=== PATIENT | female | born 1990 | race Caucasian/White ===

== ENCOUNTER → 2016-10-28 | Outpatient (CLI) | payer BC ==
[2016-10-28 13:14] LABS: CONTROL LINE HCG INT CTR LINE PRESENT
[2016-10-28 13:43] LABS: T UPTAKE 34 % (30-39); THYROXINE (T4) 11.1 UG/DL (4.5-12.0)
== END | disposition home or self-care (01) ==
LOC: M SMT 08:58
PROVIDERS: ATTEND Advanced Practice Midwife
DX: N91.2 Amenorrhea, unspecified (principal)

== ENCOUNTER → 2016-12-11 | Outpatient (REF) | payer BC | LOC: M LAB REF 17:11 | PROVIDERS: ATTEND Physician Assistant Medical | DX: Z11.9 Encounter for screening for infectious and parasitic diseases, unspecified (principal) ==

== ENCOUNTER → 2017-02-19 | Outpatient (CLI) | payer BC ==
[2017-02-19 11:55] LABS: BASO % 0.3 % (0.0-1.0); EOS # 0.1 K/mm3 (0.0-0.50); LARGE UNSTAINED CELL # 0.1 K/mm3 (0.0-0.4); LARGE UNSTAINED CELL % 0.8 % (0.0-4.0); LYMPH # 1.9 K/mm3 (1.5-6.5); LYMPH % 19.9 % (24.0-44.0); MEAN CORPUSCULAR HEMOGLOBIN 31.9 pg (27.0-33.0); MEAN CORPUSCULAR VOLUME 93.8 fl (80.0-96.0); MONO # 0.4 K/mm3 (0.0-0.8); MONO % 4.4 % (0.0-5.0); NEUTROPHILS # 6.6 K/mm3 (1.8-7.7); NEUTROPHILS % 73.5 % (36.0-66.0); PLATELET COUNT, AUTOMATED 244 k/mm3 (150-450); RED CELL DISTRIBUTION WIDTH 12.2 % (11.5-14.5)
[2017-02-19 12:32] LABS: HBsAg Prenatal NEGATIVE (NEGATIVE)
== END ==
LOC: M SMT 08:35
PROVIDERS: ATTEND Advanced Practice Midwife
DX: Z34.81 Encounter for supervision of other normal pregnancy, first trimester (principal); Z36 Encounter for antenatal screening of mother; Z3A.00 Weeks of gestation of pregnancy not specified

== ENCOUNTER → 2017-02-22 | Outpatient (REF) | payer BC | LOC: M LAB REF 12:43 | PROVIDERS: ATTEND Advanced Practice Midwife | DX: Z34.81 Encounter for supervision of other normal pregnancy, first trimester (principal); Z36 Encounter for antenatal screening of mother; Z3A.00 Weeks of gestation of pregnancy not specified ==

== ENCOUNTER → 2017-04-28 | Outpatient (CLI) | payer BC ==
[~2017-04-28] MED LIST: PRENTAB9 PO
--- NOTE | 2017-04-29 06:04 | REP ---
Clinical: Anatomical evaluation. Comparison: None . Findings: Examination demonstrates a single live intrauterine in transverse (head to maternal left) presentation. motion is identified by technologist. Placenta is noted anteriorly and grade zero without evidence for placenta previa or abruption. Amniotic fluid volume is normal. Cervix measures 3.3 cm in length and appears closed. No evidence for nuchal cord. Gestational age by current measurements 18 weeks 3 days with ARIAN 09/26/2017. FHR equals 150 beats per minute. BPD 4.2 cm 18 weeks 4 days HC 15.3 cm 18 weeks 2 days AC 13.1 cm 18 weeks 4 days FL 2.9 cm 18 weeks 5 days HL 2.9 cm 19 weeks 2 days HC/AC ratio 1.17 Estimated weight 249 grams ( 53rd percentile). Anatomical assessment demonstrates normal structures including cranium, choroid plexus, cavum, cerebellum/posterior fossa, facial features, lungs, diaphragm, stomach, cord insertion/three-vessel cord, kidneys/bladder, and extremities. Impression: Single live intrauterine in transverse lie. Limited evaluation of the heart/ventricle outflow tracts and spine. Remainder of the anatomical assessment is complete and normal. Signed by Patrick Everett MD 04/29/2017 05:55 A
== END ==
LOC: M SMT 10:17
PROVIDERS: ATTEND Obstetrics & Gynecology
DX: O32.2XX0 Maternal care for transverse and oblique lie, not applicable or unspecified (principal); Z36 Encounter for antenatal screening of mother; Z3A.18 18 weeks gestation of pregnancy

== ENCOUNTER → 2017-06-01 | Outpatient (CLI) | payer BC ==
--- NOTE | 2017-06-01 21:36 | REP ---
Clinical: Anatomical re-evaluation. Comparison: 04/28/2017 . Findings: Examination demonstrates a single live intrauterine in breech presentation. motion is identified by technologist. Placenta is noted anteriorly and grade one without evidence for placenta previa or abruption. Amniotic fluid volume is normal. Cervix measures 3.6 cm in length and appears closed. No evidence for nuchal cord. Gestational age by first US 23 weeks 2 days with ARIAN 09/26/2017 . Gestational age by current measurements 22 weeks 6 days with ARIAN 09/29/2017 . FHR equals 147 beats per minute. Estimated weight 589 grams ( 47th percentile). Anatomical assessment demonstrates normal structures including cranium, choroid plexus, cavum, cerebellum/posterior fossa, facial features, lungs, four-chamber heart/ventricular outflow tracts, diaphragm, stomach, cord insertion/three-vessel cord, kidneys/bladder, spine, and extremities. Impression: Single live intrauterine in breech presentation demonstrating appropriate interval growth. Anatomical assessment is complete and normal. Signed by Patrick Everett MD 06/01/2017 09:28 P
== END ==
LOC: M SMT 12:52
PROVIDERS: ATTEND Obstetrics & Gynecology
DX: O32.1XX0 Maternal care for breech presentation, not applicable or unspecified (principal); Z36 Encounter for antenatal screening of mother; Z3A.23 23 weeks gestation of pregnancy

== ENCOUNTER → 2017-07-08 | Outpatient (CLI) | payer BC ==
[2017-07-08 14:05] LABS: MEAN CORPUSCULAR HEMOGLOBIN 29.1 pg (27.0-33.0); MEAN CORPUSCULAR HGB CONC 32.9 g/dl (32.0-36.5); MEAN CORPUSCULAR VOLUME 88.4 fl (80.0-96.0); RED CELL DISTRIBUTION WIDTH 13.9 % (11.5-14.5); WHITE BLOOD COUNT 14.6 10^3/uL (4.0-10.0)
== END ==
LOC: M SMT 10:53
PROVIDERS: ATTEND Obstetrics & Gynecology
DX: Z34.82 Encounter for supervision of other normal pregnancy, second trimester (principal); Z3A.00 Weeks of gestation of pregnancy not specified

== ENCOUNTER 2017-07-22 09:49 | Outpatient (CLI) | payer OTHER, BC ==
[~2017-07-22] VITALS: Ht 157.5 cm; Wt 83.7 kg
[2017-07-22 10:04] VITALS: BP 121/64
[2017-07-22] MEDS ORDERED: PRENTAB9 PO (10:06)
[2017-07-22 10:12] VITALS: BP 121/64
[2017-07-22 11:09] LABS: MEAN CORPUSCULAR HEMOGLOBIN 29.4 pg (27.0-33.0); MEAN CORPUSCULAR HGB CONC 33.4 g/dl (32.0-36.5); MEAN CORPUSCULAR VOLUME 87.9 fl (80.0-96.0); RED CELL DISTRIBUTION WIDTH 14.3 % (11.5-14.5); WHITE BLOOD COUNT 13.7 10^3/uL (4.0-10.0)
[2017-07-22 11:26] LABS: INR 0.87
--- NOTE | 2017-07-22 12:37 | REP ---
OB ULTRASOUND, BIOPHYSICAL PROFILE: Real-time sonographic evaluation of the gravid uterus is performed utilizing transabdominal and endovaginal technique. There is a single living intrauterine gestation with an estimated gestational age of 30 weeks 4 days with EDC 09/26/2017. The cervix is closed and measures 4.5 cm in length. heart rate 134 beats per minute. Amniotic fluid within normal limits. JORGE is 14.7 within normal range of 8.9 to 23.6. Biophysical profile score is 8 out of 8. S/D ratio 2.24 in below normal range of 2.5 to 3.5 . RI 0.55 is below normal range of 0.59 to 0.75. position is breech. Placenta is anterior and grade 1 with no previa or abruption. No cervical funneling is seen. Signed by Ramos Rosado MD 07/22/2017 05:35 P
[2017-07-22 14:42] VITALS: BP 116/61
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
== END 2017-07-22 15:10 | disposition home or self-care (01) ==
LOC: M LDO 09:49
PROVIDERS: ATTEND Advanced Practice Midwife
DX: O99.89 Other specified diseases and conditions complicating pregnancy, childbirth and the puerperium (principal); Z3A.30 30 weeks gestation of pregnancy; V89.2XXA Person injured in unspecified motor-vehicle accident, traffic, initial encounter; X58.XXXA Exposure to other specified factors, initial encounter; Y93.9 Activity, unspecified; Y92.9 Unspecified place or not applicable; Y99.8 Other external cause status

== ENCOUNTER → 2017-08-31 | Outpatient (REF) | payer BC | LOC: M LAB REF 17:28 | PROVIDERS: ATTEND Advanced Practice Midwife | DX: Z34.83 Encounter for supervision of other normal pregnancy, third trimester (principal) ==

== ENCOUNTER 2017-09-24 19:08 | Inpatient (IN) | payer BC ==
[~2017-09-24] VITALS: Ht 157.5 cm; Wt 94.8 kg
[2017-09-24] VITALS (27 sets, daily range): BP systolic 119–174; BP diastolic 55–103
[2017-09-24] MEDS ORDERED: TUMS500C PO (19:18)
[2017-09-24] MEDS ORDERED: LACTATED RINGER'S 1000 ML IV STA (19:26)
[2017-09-24] MEDS ORDERED: PENICILLIN G POTASSIUM IV 5 MU in D5W MINI-BAG PLUS 100 ML IV STA (19:26)
[2017-09-24] MEDS ORDERED: LR 1,000 ML IV SCH (19:45)
--- NOTE | 2017-09-24 19:46 | HPEPDOC ---
Obstetrical History & Physical General Date of Admission Sep 24, 2017 at 19:26 Past Medical History Allergies Coded Allergies: No Known Drug Allergy (Verified Allergy, Unknown, 07/22/17) Medications Scheduled Multivitamins/ ( 27-0.8 mg) 1 Tab Tab, 1 TAB PO DAILY Miscellaneous Medications Calcium Carbonate (Tums) 500 Mg Chw, 500 MG PO Physical Examination Physical Examination GENERAL: Alert and oriented times three. BREAST: . ABDOMEN: Gravid and non-tender to touch. FETUS: Is vertex (VTX) by sterile vaginal examination (SVE), fetus is vertex ( VTX) by Vikram. HEART RATE: Regular rate and rhythm. LUNGS: Clear to auscultation (CTA). EXTREMITIES: No edema. No clonus. Deep tendon reflexes (DTRs) + . Laboratory Data 24H LABS Laboratory Tests 2 09/24/17 19:36: Serology Scanned Report Hepatitis B Testing Assessment/Plan Assessment is a -year-old (G) para (P)--- at + weeks by -week ultrasound. Presents to Labor and Delivery (L&D) . Plan Admit and orient. 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 Diet: . Group B Streptococcus (GBS) [negative]. Labs and intravenous (IV) per unit protocol. Counseled on Pitocin and induction of labor (IOL). Lactated Ringers (LR): Bolus mL, then at mL/hr. Anticipate [normal spontaneous delivery ()]. C-S as appropriate. ELBERT REESE CNM Sep 24, 2017 19:46
--- NOTE | 2017-09-24 19:57 | HPEPDOC ---
Obstetrical History & Physical General Date of Admission Sep 24, 2017 at 19:26 Primary Care Physician: ELBERT REESE CNM History of Present Illness Patient is a 26-year-old female who is a at 39.4 weeks gestation with an ARIAN of 09/27/17 based off of her 1st trimester ultrasound. She initiated her care in her first trimester at [facility]. Her has been uncomplicated. She presents to L&D with complaints of contractions. She report contractions to be every 3 minutes for the last 2 hours. She reports having bloody show and movement. Denies leaking of fluid. Chief Complaint: Contractions, term, Active Labor, Group B Positive Information Provided By: Patient Age: 26 : 3 Term: 0 Pre-term: 0 Abortions: 2 Livin Care Care: Good Care Dating Final EDC: Sep 27, 2017 Final EDC by: 1st trimester (US) LMP: Dec 12, 2017 EGA at Admission: 39.4 Antepartum Course Height (inches): 62 Pre- weight (lbs.): 170 Admission Weight (lbs.): 208 Change in Weight (lbs.): 38 Past Medical History [employer] History: Spontaneous (12/2012: SAB; 01/2016:MAB with D&C), Human papillomavirus(HPV) Past Medical History Medical History varicella as a child Surgical History: Dilatation and Curettage Family History Significant Family History: Cancer, Diverticulitis, Heart disease, Hypertension Social History Marital Status: Single Family situation: Spouse/partner home Psychosocial History: Anxiety * Smoker: non-smoker Alcohol: Denies Drugs: denies Abuse Violence Screening Have you been hit/kicked/slapp: No Have you been sexually assault: No Imunizations Tdap status: current Influenza Status: current Allergies Coded Allergies: No Known Drug Allergy (Verified Allergy, Unknown, 07/22/17) Medications Scheduled Multivitamins/ ( 27-0.8 mg) 1 Tab Tab, 1 TAB PO DAILY Miscellaneous Medications Calcium Carbonate (Tums) 500 Mg Chw, 500 MG PO Physical Examination Physical Examination GENERAL: Alert and oriented times three. BREAST: . ABDOMEN: Gravid and non-tender to touch. FETUS: Is vertex (VTX) by sterile vaginal examination (SVE), fetus is vertex ( VTX) by Vikram. HEART RATE: Regular rate and rhythm. LUNGS: Clear to auscultation (CTA). EXTREMITIES: No edema. No clonus. . Laboratory Data 24H LABS Laboratory Tests 2 09/24/17 19:36: Serology Scanned Report Hepatitis B Testing Urine Culture: No Growth Pertinent Laboratoy Data Blood Type: A+ RBC Antibody Screen: Negative HIV: Negative Hepatitis B: Negative Hepatitis C: Negative Rapid Plasma Reagin: Nonreactive Rubella: Immune Chlamydia/Gonorrhea: Negative Group B Streptococcus: Positive Quad Screen Test: Declined Glucose Tolerance Test: 96 Vaginal Examination Dilation: 4 cm Effacement: 80% Station: -2 Cervical Consistency: Soft Cervical Position: Anterior Presentation: Cephalic presentation Position: Vertex (occiput) Assessment Heart Rate (FHR): 130 Variability: Moderate Accelerations: Positive Decelerations: None Tocometer Contractions: Yes Frequency: regular Strength: palpated as moderate Multi-drug resistant Organism: No history of MDRO Assessment/Plan Assessment IUP at 39.4 weeks gestation active labor Category I HR tracing Positive GBS Plan Admit to L&D. Diet: clear. Group B Streptococcus (GBS) positive. Labs and intravenous (IV) per unit protocol. Preeclamptic profile ordered. Lactated Ringers (LR): Bolus 800 mL, then at 125 mL/hr. PCN G for GBS prophylaxis ordered. Anesthesia consult per patient's request. Anticipate normal spontaneous delivery (). ELBERT REESE CNM Sep 24, 2017 19:57
[2017-09-24 20:07] LABS: MEAN CORPUSCULAR HEMOGLOBIN 29.2 pg (27.0-33.0); MEAN CORPUSCULAR HGB CONC 34.2 g/dl (32.0-36.5); MEAN CORPUSCULAR VOLUME 85.3 fl (80.0-96.0); PLATELET COUNT, AUTOMATED 222 10^3/uL (150-450); RED CELL DISTRIBUTION WIDTH 14.6 % (11.5-14.5); WHITE BLOOD COUNT 15.6 10^3/uL (4.0-10.0)
[2017-09-24 20:27] LABS: ALT/SGPT 23 U/L (12-78); AST/SGOT 23 U/L (7-37); BILIRUBIN,TOTAL 0.3 MG/DL (0.2-1.0); CREATININE FOR GFR 0.68 MG/DL (0.55-1.02); GLOMERULAR FILTRATION RATE > 60.0 (>60); URIC ACID 6.1 MG/DL (2.6-6.0)
[2017-09-24] MEDS ORDERED: FENTANYL 2MCG/ML ROPIVACAINE 0.2% IN 0.9% NACL 200ML IVBAG As Ordered ONE (20:30)
[2017-09-24] MEDS ORDERED: diphenhydrAMINE INJ 50MG/ML VIAL (J1200) IV PRN (21:45)
[2017-09-24] MEDS ORDERED: NALOXONE INJ 0.4 MG/1 ML VIAL (J2310) IV PRN (21:45)
[2017-09-24] MEDS ORDERED: LACTATED RINGER'S 1000 ML IV PRN (21:45)
[2017-09-24] MEDS ORDERED: REFRIGERATOR IV KEYS XX PRN (21:45)
[2017-09-24] MEDS ORDERED: ONDANSETRON 4MG/2ML VIAL (J2405) IV PRN (21:45)
[2017-09-24] MEDS ORDERED: ePHEDrine SULFATE 25 MG/5 ML(5MG/ML) SYRINGE IV PRN (21:45)
[2017-09-24] MEDS ORDERED: EPIDURAL COMMENT XX SCH (21:45)
[2017-09-24] MEDS ORDERED: FENTANYL/ROPIVACAINE/NACL BAG 200 ML EPIDURAL SCH (21:45)
[2017-09-24] MEDS ORDERED: EPIDURAL/PCA KEYS XX PRN (21:45)
[2017-09-24] MEDS ORDERED: OXYTOCIN DRIP 30 UNITS in APPROPRIATE DILUENT 1 EA IV SCH (22:15)
[2017-09-25] VITALS (13 sets, daily range): BP systolic 118–142; BP diastolic 57–83
[2017-09-25] MEDS ORDERED: PENICILLIN G POTASSIUM IV 2.5 MU in APPROPRIATE DILUENT 1 EA IV SCH ×2
[2017-09-25] MEDS ORDERED: MEASLES,MUMPS,RUBELLA VACCINE INJ (MMR-II) (90707) SC SCH (05:00)
[2017-09-25] MEDS ORDERED: ANUSOL HC CREAM 30GM TOP PRN (05:00)
[2017-09-25] MEDS ORDERED: OXYTOCIN DRIP 30 UNITS in APPROPRIATE DILUENT 1 EA IV SCH (05:00)
[2017-09-25] MEDS ORDERED: DIBUCAINE 1% OINTMENT 30GM TOP PRN (05:00)
[2017-09-25] MEDS ORDERED: DOCUSATE SODIUM 100 MG CAP PO PRN (05:00)
[2017-09-25] MEDS ORDERED: RHOGAM 300 MCG (1500 IU) INJ (J2790) IM SCH (05:00)
[2017-09-25] MEDS ORDERED: ACETAMINOPHEN 500 MG TAB PO PRN (05:00)
[2017-09-25] MEDS ORDERED: METHYLERGONOVINE MALEATE 0.2 MG TAB PO PRN (05:00)
--- NOTE | 2017-09-25 05:00 | DNPDOC ---
[facility] Delivery Note Delivery Note DATE OF DELIVERY: 09/25/17 at 0409 PROCEDURE: Spontaneous vaginal delivery. PROVIDER: Elbert Pineda CNM, MARBIN ANESTHESIA: epidural. ESTIMATED BLOOD LOSS: 150 mL. FINDINGS: 7 pounds 9 ounces, 3440 grams, female , Score 8/9, nuchal cord times x1, meconium stained fluid. DELIVERY SUMMARY: Patient is a [id number] who is now a who presented to L&D in active labor. She received an epidural for pain management and 28 cc of Pitocin to augment her labor. She progressed to fully dilated at 0146 and pushed to a living female at 0409 in the ALBERT position with restitution to LOT. There was a tight nuchal noted that was not reduced. The anterior shoulder delivered with ease and the corpus immediately followed. The baby was placed on the maternal abdomen, active and crying after stimulation. The cord was clamped x2 after pulsation ceased and cut by the FOB. A 3-vessel cord was noted. The placenta delivered spontaneously and intact at 0421. Uterine hemostasis was achieved with rapid infusion of IV Pitocin and fundal massage. The perineum and vagina were inspected and found to have a 2nd degree perineal laceration that was repaired with a 3.0 vicryl rapide. Mom plans on . They are naming their "Solen." Both mom and baby are in stable condition. ELBERT PINEDA CNM Sep 25, 2017 05:00
[2017-09-25] MEDS: IBUPROFEN 800 MG TAB PO PRN ×2 (06:58→15:32)
[2017-09-25] MEDS: PRENATAL VITAMINS CHEWABLE TABLET PO SCH (09:17)
[2017-09-26 06:53] VITALS: BP 139/71
[2017-09-26] MEDS: PRENATAL VITAMINS CHEWABLE TABLET PO SCH (08:44)
[2017-09-26] MEDS ORDERED: ACET50TA PO (11:16)
[2017-09-26] MEDS ORDERED: IBUP-1114 PO (11:16)
[2017-09-26 18:00] VITALS: BP 132/67
[2017-09-26] MEDS: IBUPROFEN 800 MG TAB PO PRN (21:06)
[2017-09-27 06:00] VITALS: BP 130/70
[2017-09-27] MEDS: PRENATAL VITAMINS CHEWABLE TABLET PO SCH (07:37)
[2017-09-27] MEDS: IBUPROFEN 800 MG TAB PO PRN (07:37)
== END 2017-09-27 15:55 | disposition home or self-care (01) | DRG 560 ==
LOC: M LDO 19:08 → M LDI 19:26 → M OBS 09-25 07:31
PROVIDERS: ADMIT Advanced Practice Midwife; ATTEND Advanced Practice Midwife
PROC: 10E0XZZ Delivery of Products of Conception, External Approach (ICD-10-PCS; principal; 2017-09-25)
PROC: 0KQM0ZZ Repair Perineum Muscle, Open Approach (ICD-10-PCS; 2017-09-25)
DX: O99.824 Streptococcus B carrier state complicating childbirth (principal); O77.0 Labor and delivery complicated by meconium in amniotic fluid; Z37.0 Single live birth; Z3A.39 39 weeks gestation of pregnancy; O69.2XX0 Labor and delivery complicated by other cord entanglement, with compression, not applicable or unspecified; O70.1 Second degree perineal laceration during delivery

== ENCOUNTER → 2019-03-17 | Outpatient (CLI) | payer BC ==
[~2019-03-17] MED LIST changes: +IBUP-1114 PO; +MAPA500T2 PO; +TUMS500C PO
[2019-03-17 13:34] LABS: BASO % 0.5 % (0.0-1.0); EOS # 0.1 10^3/uL (0.0-0.50); EOS % 1.3 % (0.0-3.0); HEMATOCRIT 42.3 % (36.0-47.0); HEMOGLOBIN 14.2 g/dl (12.0-15.5); LYMPH # 2.3 10^3/uL (1.5-4.5); LYMPH % 28.6 % (24.0-44.0); MEAN CORPUSCULAR HEMOGLOBIN 31.7 pg (27.0-33.0); MEAN CORPUSCULAR HGB CONC 33.6 g/dl (32.0-36.5); MEAN CORPUSCULAR VOLUME 94.4 fl (80.0-96.0); MONO # 0.5 10^3/uL (0.0-0.8); MONO % 6.1 % (0.0-5.0); PLATELET COUNT, AUTOMATED 249 10^3/uL (150-450); RED BLOOD COUNT 4.48 10^6/uL (4.00-5.40); WHITE BLOOD COUNT 7.9 10^3/uL (4.0-10.0)
[2019-03-17 14:26] LABS: HEPATITIS C VIRUS ABY INDEX < 0.0 INDEX (<0.8); HIV 1&2 SCREEN CENTAUR NEGATIVE (NEGATIVE); RUBELLA IgG QUALITATIVE IMMUNE (IMMUNE)
[2019-03-17 15:34] LABS: CHLAMYDIA DNA AMPLIFICATION NEGATIVE (NEGATIVE); GC DNA AMPLIFICATION NEGATIVE (NEGATIVE)
== END ==
LOC: M SMT 08:54
PROVIDERS: ATTEND Advanced Practice Midwife
DX: Z34.81 Encounter for supervision of other normal pregnancy, first trimester (principal)

== ENCOUNTER → 2019-03-29 | Outpatient (REF) | payer BC | LOC: M LAB REF 17:04 | PROVIDERS: ATTEND Advanced Practice Midwife | DX: Z34.81 Encounter for supervision of other normal pregnancy, first trimester (principal); Z3A.00 Weeks of gestation of pregnancy not specified ==

== ENCOUNTER → 2019-04-13 | Outpatient (REF) | payer BC ==
[~2019-04-13] MED LIST changes: +ASPI81CH33 PO; +DOCU100C16 PO; +IBUP80TA PO; +LABE100T36 PO; +LABE200T32 PO; +PERCOCET PO
== END ==
LOC: M LAB REF 17:13
PROVIDERS: ATTEND Advanced Practice Midwife
DX: Z34.82 Encounter for supervision of other normal pregnancy, second trimester (principal)

== ENCOUNTER → 2019-05-11 | Outpatient (CLI) | payer BC ==
[~2019-05-11] MED LIST changes: -ASPI81CH33 PO; -DOCU100C16 PO; -IBUP80TA PO; -LABE100T36 PO; -LABE200T32 PO; -PERCOCET PO
[2019-05-11 18:40] LABS: ALT/SGPT 15 U/L (12-78); BILIRUBIN,TOTAL 0.2 MG/DL (0.2-1.0); CREATININE FOR GFR 0.66 MG/DL (0.55-1.30); FREE T4 0.85 NG/DL (0.76-1.46); GLOMERULAR FILTRATION RATE > 60.0 (>60); LDH LACTATE DEHYDROGENASE 152 U/L (84-246); URIC ACID 4.4 MG/DL (2.6-6.0)
[2019-05-11 18:42] LABS: TOTAL 25(OH) VITAMIN D 19.5 NG/ML (30.0-100.0)
[2019-05-11 18:57] LABS: TOTAL PROTEIN,RANDOM URINE 19.8 MG/DL (0.0-12.0)
== END ==
LOC: M SMT 14:54
PROVIDERS: ATTEND Advanced Practice Midwife
DX: O10.012 Pre-existing essential hypertension complicating pregnancy, second trimester (principal); O26.812 Pregnancy related exhaustion and fatigue, second trimester

== ENCOUNTER → 2019-05-22 | Outpatient (CLI) | payer BC ==
--- NOTE | 2019-05-22 16:06 | REP ---
Obstetric ultrasound for anatomy: There is a single intrauterine gestation in a transverse lie with the head to the maternal right. There is motion and cardiac activity. The heart rate is 134 beats per minute. The placenta is right lateral. There is no placenta previa or abruptio. The placenta is grade zero. The amniotic fluid volume subjectively is normal. The cervix measures 4.4 cm in length. During the examination there was a contraction in the lower uterine segment. Gestational age by today's ultrasound 17 weeks 1 day/ARIAN 10/29/2019. Gestational age by LMP is 18-weeks 6 days/ARIAN 10/17/2019. weight is 178 grams/0 pounds, 6 ounces. This is less than the 3rd percentile for 18 weeks 6 days. The following anatomic structures are identified and are unremarkable: Cranium, choroid plexus, upper lip, facial profile, face, lungs, four-chamber heart, cardiac right and left ventricular outflow tracts, diaphragm, stomach, cord insertion, three-vessel cord, kidneys, bladder and upper lower extremities. Suboptimally demonstrated because of position are the cavum septum pellucidum, cerebellum and spine. A followup study after 20 weeks gestational age may be considered for further evaluation of these structures. Otherwise, there are no anomalies. Electronically Signed by Ramos Kaufman MD 05/22/2019 03:57 P
== END ==
LOC: M RAD 14:11
PROVIDERS: ATTEND Advanced Practice Midwife
DX: Z36.89 Encounter for other specified antenatal screening (principal); Z3A.17 17 weeks gestation of pregnancy

== ENCOUNTER → 2019-07-14 | Outpatient (CLI) | payer BC ==
[2019-07-14 13:26] LABS: HEMATOCRIT 42.8 % (36.0-47.0); HEMOGLOBIN 13.8 g/dl (12.0-15.5); MEAN CORPUSCULAR HEMOGLOBIN 29.8 pg (27.0-33.0); MEAN CORPUSCULAR HGB CONC 32.2 g/dl (32.0-36.5); MEAN CORPUSCULAR VOLUME 92.4 fl (80.0-96.0); PLATELET COUNT, AUTOMATED 232 10^3/uL (150-450); RED BLOOD COUNT 4.63 10^6/uL (4.00-5.40); WHITE BLOOD COUNT 11.7 10^3/uL (4.0-10.0)
== END ==
LOC: M SMT 08:55
PROVIDERS: ATTEND Advanced Practice Midwife
DX: O10.012 Pre-existing essential hypertension complicating pregnancy, second trimester (principal)

== ENCOUNTER 2019-09-14 15:35 | Outpatient (CLI) | payer BC ==
[2019-09-14] VITALS (10 sets, daily range): BP systolic 121–156; BP diastolic 68–86
[~2019-09-14] VITALS: Ht 160 cm; Wt 94.0 kg
[2019-09-14] MEDS ORDERED: ASPI81CH33 PO (15:56)
[2019-09-14] MEDS ORDERED: LABE100T36 PO (15:56)
[2019-09-14 16:51] LABS: HEMATOCRIT 41.1 % (36.0-47.0); HEMOGLOBIN 13.5 g/dl (12.0-15.5); MEAN CORPUSCULAR HEMOGLOBIN 30.2 pg (27.0-33.0); MEAN CORPUSCULAR HGB CONC 32.8 g/dl (32.0-36.5); MEAN CORPUSCULAR VOLUME 91.9 fl (80.0-96.0); PLATELET COUNT, AUTOMATED 214 10^3/uL (150-450); RED BLOOD COUNT 4.47 10^6/uL (4.00-5.40); WHITE BLOOD COUNT 11.4 10^3/uL (4.0-10.0)
[2019-09-14 17:14] LABS: CREATININE,RANDOM URINE 32.4 MG/DL; TOTAL PROTEIN,RANDOM URINE 11.3 MG/DL (0.0-12.0)
[2019-09-14] MEDS ORDERED: BETAMETHASONE SOLUSPAN 6MG/ML INJ 5ML (J0702) IM ONE (17:15)
[2019-09-14 17:26] LABS: ALT/SGPT 16 U/L (12-78); BILIRUBIN,TOTAL 0.2 MG/DL (0.2-1.0); GLOMERULAR FILTRATION RATE > 60.0 (>60); LDH LACTATE DEHYDROGENASE 157 U/L (84-246); URIC ACID 5.7 MG/DL (2.6-6.0)
--- NOTE | 2019-09-14 19:06 | IPN ---
DATE: 09/14/2019 28-year-old G-4, P-1, 0-0-2-1 female, 35 and 2/7 weeks gestation by 7 week ultrasound, EDC of 10/17/2019, presents to triage from the office after having elevated blood pressure in the office, treated. The patient has a history of chronic hypertension and is on labetalol 200 mg twice a day. She denies headaches or blurry vision. She feels fine. OBSTETRIC: Blood pressure 147/83, pulse 84. She is in apparent distress. Head and neck exam: Normal. Lungs: Clear. Heart: Regular rate and rhythm. Abdomen: Nontender, gravid. heart tones: Category 1. Contractions none. Preeclampsia labs are within normal limits. Spot urine protein indeterminate. ASSESSMENT: 28-year-old, G-4, P-1, 0-0-2-1 female at 35 2/7 weeks gestation with chronic hypertension on antihypertensive. PLAN: The patient received first dose of betamethasone. She will return tomorrow for her second dose. She will be maintained on labetalol 200 mg twice a day. She will stop working and maintain modified bedrest. Will give consideration to early delivery due to blood pressure issues.
[2019-09-15] MEDS ORDERED: LABE200T32 PO (14:20)
== END 2019-09-14 18:40 | disposition home or self-care (01) ==
LOC: M LDO 15:35
PROVIDERS: ATTEND Specialist
DX: O26.893 Other specified pregnancy related conditions, third trimester (principal); R03.0 Elevated blood-pressure reading, without diagnosis of hypertension; Z3A.35 35 weeks gestation of pregnancy
CPT/HCPCS: 36415; 59025; 82247; 82565; 82570; 83615; 84156; 84450; 84460; 84550; 85027; 96372; G0378; G0463; J0702

== ENCOUNTER 2019-09-15 13:53 | Inpatient (IN) | payer BC ==
[~2019-09-15] VITALS: Ht 160 cm; Wt 93.5 kg
[2019-09-15] VITALS (13 sets, daily range): BP systolic 127–175; BP diastolic 59–96
[~2019-09-15 13:53] MED LIST changes: +ASPI81CH33 PO; +LABE100T36 PO
[2019-09-15] MEDS ORDERED: LABE200T32 PO (14:20)
[2019-09-15] MEDS ORDERED: BETAMETHASONE SOLUSPAN 6MG/ML INJ 5ML (J0702) IM ONE (14:45)
[2019-09-15] MEDS ORDERED: LR 1,000 ML IV SCH (15:40)
[2019-09-15] MEDS ORDERED: LABETALOL HCL 100 MG/20 ML VIAL IV ONE (15:45)
[2019-09-15 16:24] LABS: HEMOGLOBIN 13.2 g/dl (12.0-15.5); MEAN CORPUSCULAR HEMOGLOBIN 29.5 pg (27.0-33.0); MEAN CORPUSCULAR HGB CONC 32.2 g/dl (32.0-36.5); MEAN CORPUSCULAR VOLUME 91.5 fl (80.0-96.0); PLATELET COUNT, AUTOMATED 230 10^3/uL (150-450); RED BLOOD COUNT 4.48 10^6/uL (4.00-5.40); WHITE BLOOD COUNT 18.8 10^3/uL (4.0-10.0)
--- NOTE | 2019-09-15 16:29 | HPEPDOC ---
Obstetrical History & Physical General Date of Admission 09/15/2019 History of Present Illness 28yo ARIAN 10/17/2019. Presents @ 35w3d for 2nd betamethasone injection and followup growth sono due to essential hypertension and growth concerns. Maintained at home with labetalol 200mg BID. Blood pressures on admit elevated, 175/96. Growth sono significant for breech presentation, growth <3%, EFW 1564gm, suspicious for asymmetric IUGR. BPP 05/11 with category 1 tracing. Chief Complaint: IUP- Information Provided By: Patient Age: 28 : 4 Term: 1 Pre-term: 0 Abortions: 2 Livin Care Care: Good Care Dating Final EDC: Oct 17, 2019 Final EDC by: 1st trimester () 1st Trimester Date: March 01, 2019 Weeks + Days: 7 (+1) Estimated Date of Confinement: Oct 17, 2019 EGA at Admission: 35 (+3) Antepartum Course Height (inches): 62 Pre- weight (lbs.): 175 Admission Weight (lbs.): 207 Past Medical History Past Obstetrical History : Past Obstetrical History: Primgravida (2017) Type of Delivery: Spontaneous Vaginal Del. Sex of : Female (7#12) Complications: No OFFICE ASSISTANT History: Spontaneous , Abnormal Pap Past Medical History Medical History Essential hypertension, anxiety Surgical History: Dilatation and Curettage Family History Significant Family History: Cancer, Diverticulitis, Heart disease, Hypertension Social History Marital Status: Family situation: Spouse/partner home Psychosocial History: Anxiety * Smoker: non-smoker Alcohol: Denies Drugs: denies Abuse Violence Screening Have you been hit/kicked/slapp: No Have you been sexually assault: No Imunizations Tdap status: current Influenza Status: current Allergies Coded Allergies: No Known Drug Allergies (Verified Allergy, Unknown, 09/14/19) Medications Scheduled Aspirin (Aspirin) 81 Mg Tab.chew, 1 TAB PO DAILY for pain Labetalol HCl (Labetalol HCl) 200 Mg Tablet, 200 MG PO BID No.137/Iron/Folic Acd ( Vitamin Tablet) 1 Tab Tab, 1 TAB PO DAILY Miscellaneous Medications Calcium Carbonate (Tums) 500 Mg Chw, 500 MG PO Physical Examination Physical Examination GENERAL: Alert and oriented times three. BREAST: . ABDOMEN: Gravid and non-tender to touch. FETUS: fetus is breech by sono today. HEART RATE: Regular rate and rhythm. LUNGS: Clear to auscultation (CTA). EXTREMITIES: No edema. No clonus. Deep tendon reflexes (DTRs) + 2. Vital Signs/I&O Vital Signs Date Time Temp Pulse Resp B/P (MAP) Pulse Ox O2 Delivery O2 Flow Rate FiO2 09/15/19 15:23 75 18 172/86 (114) 09/15/19 14:18 99.0 Pertinent Laboratoy Data Blood Type: A+ RBC Antibody Screen: Positive HIV: Negative Hepatitis B: Negative Hepatitis C: Negative Rapid Plasma Reagin: Nonreactive Rubella: Immune Chlamydia/Gonorrhea: Negative Group B Streptococcus: Unknown (obtained 09/15/19) Quad Screen Test: Declined Diag/Inter Therapy Betamethasone complete 09/15/19 Anatomy Ultrasound Ultrasound Date: May 22, 2019 Placenta Location: Right Lateral Normal Anatomy: Yes Placenta Previa: No Estimated Weight (grams): 178 (<3%) Other Ultrasounds 03/01/19 dating TVUS 7w1d. ARIAN 10/17/2019 05/31/19 f/u anatomy WNL, no EFW documented 06/13/19 EFW 313gm, 31% reported based on ARIAN current measurements of 10/29/19 08/09/19 EFW 989gm, 28% reported based on ARIAN current measurements of 11/05/19 08/30/19 Breech. EFW 1431gm, 42% reported based on ARIAN current measurements of 11/11/19, JORGE 9.7 09/15/19 Breech. EFW 1564gm, <3% based on correct ARIAN of 10/17/19. JORGE 12.0. Suggestive of asymmetric IUGR. BPP 05/11 Steroid Therapy Steroid Therapy: Yes Date #1: Sep 14, 2019 Date #2: Sep 15, 2019 Reason CHTN Vaginal Examination Dilation: None (deferred) Assessment Heart Rate (FHR): 145 Variability: Moderate Accelerations: Positive Decelerations: None Tocometer Contractions: No Multi-drug resistant Organism: No history of MDRO Assessment/Plan Assessment Theresa is a 28-year-old (G)4 para (P)1-0-2-1 at 35 weeks by 7-week ultrasound. Presents to Labor and Delivery (L&D) for betamethasone #2, growth sono and BPP. EFW 1564, <3% suggestive of asymmetric IUGR. Initial blood pressures 175/96, 172/86. Reviewed patient status with Dr Moran. Recommend admit, labs, hypertensive control and prepare for primary tomorrow 24h rs after 2nd dose of betamethasone. Plan Admit and orient. 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 Diet: Regular. NPO after midnight. Group B Streptococcus (GBS) unknown, obtained 09/15/19. Labs and intravenous (IV) per unit protocol. Counseled on preparations for tomorrow. Saline lock C-S per Dr Moran. Alison Levine Sep 15, 2019 16:29
[2019-09-15 17:08] LABS: ALT/SGPT 20 U/L (12-78); BILIRUBIN,TOTAL 0.2 MG/DL (0.2-1.0); GLOMERULAR FILTRATION RATE > 60.0 (>60); LDH LACTATE DEHYDROGENASE 191 U/L (84-246); URIC ACID 6.1 MG/DL (2.6-6.0)
[2019-09-15] MEDS ORDERED: hydrOXYzine 50 MG TAB PO PRN (20:45)
[2019-09-15] MEDS: LABETALOL 200 MG TAB PO SCH (21:01)
[2019-09-16] VITALS (16 sets, daily range): BP systolic 105–160; BP diastolic 52–85
--- NOTE | 2019-09-16 05:26 | IPNPDOC ---
Text Note Date of Service The patient was seen on 09/16/19. NOTE Called to room to evaluate heart deceleration. Per nursing at approxim ately 0440, an audible FH deceleration to 60's over approximately 2.5 minutes was heard with recovery to 120's, minimal variability. Maternal pulse ox 70's. Tracing is sketchy due to activity, position and maternal habitus. Bedside sono to confirm optimal placement of transducer. FH now 135, minimal to moderate variability, audible movement. Will observe closely and update Dr Moran. IV fluid bolus started. Blood pressures have remained stable overnight. VS,Fishbone, I+O VS, Fishbone, I+O Laboratory Tests 09/15/19 15:59 Vital Signs Date Time Temp Pulse Resp B/P (MAP) Pulse Ox O2 Delivery O2 Flow Rate FiO2 09/15/19 21:01 88 140/75 09/15/19 18:34 18 09/15/19 14:18 99.0 Alison Levine CNM Sep 16, 2019 05:26
--- NOTE | 2019-09-16 07:12 | REP ---
OB ULTRASOUND: Real-time sonographic evaluation of the gravid uterus performed. There is a single living intrauterine gestation. The estimated gestational age is reportedly 35 weeks 3 days based on LMP with EDC 10/17/2019. Estimated gestational age based on the first ultrasound is 33 weeks 5 days with EDC 10/29/2019. Estimated age based on today's ultrasound is 31 weeks 0 days indicating suboptimal growth. BPD 80 mm = 32 weeks 1 day, less than 5th percentile HC 293 mm = 32 weeks 3 days, less than 5th percentile AC 259 mm = 30 weeks 0 days, less than 5th percentile FL 57 mm = 30 weeks 0 days, less than 5th percentile HC/AC ratio 1.13, is slightly above normal range of 0.93 to 1.12. Estimated weight 1564 grams, less than 3rd percentile. Cervix is closed and measures 3.6 cm in length. heart rate 135 beats per minute. Amniotic fluid within normal limits, JORGE 12.0 within normal range of 7.8 to 24.9. Biophysical profile score 8/8. S/D ratio 2.82, within normal range of 2.0 to 3.0. RI 0.65, within normal range of 0.59 to 0.75. Middle cerebral artery demonstrates peak systolic velocity 54.5 cm/s with S/D ratio 2.99 and RI 0.67. position is breech. Placenta is on the right and grade 1 to 2 with no previa or abruption. Findings are suspicious for IUGR. Electronically Signed by Ramos Rosado MD 09/18/2019 04:16 P
[2019-09-16] MEDS ORDERED: ASPIRIN 81 MG ENTERIC TAB PO SCH (09:00)
[2019-09-16] MEDS: LABETALOL 200 MG TAB PO SCH ×2 (09:09→21:00)
[2019-09-16 12:27] LABS: HEMATOCRIT 36.6 % (36.0-47.0); HEMOGLOBIN 12.1 g/dl (12.0-15.5); MEAN CORPUSCULAR HEMOGLOBIN 30.4 pg (27.0-33.0); MEAN CORPUSCULAR HGB CONC 33.1 g/dl (32.0-36.5); PLATELET COUNT, AUTOMATED 211 10^3/uL (150-450); RED BLOOD COUNT 3.98 10^6/uL (4.00-5.40); WHITE BLOOD COUNT 14.8 10^3/uL (4.0-10.0)
[2019-09-16] MEDS ORDERED: ceFAZolin 2 GM/D5W 50 ML IV BAG (J0690 PER 500MG) As Ordered ONE (12:52)
[2019-09-16] MEDS ORDERED: BICITRA 30ML SOLN UDC As Ordered ONE (12:52)
[2019-09-16] MEDS ORDERED: AZITHROMYCIN INJ 500MG VIAL (J0456) As Ordered ONE (12:55)
[2019-09-16] MEDS ORDERED: AZITHROMYCIN INJ 500 MG, VIAL MATE ADAPTER 1 EACH in D5W 250 ML IV ONE (13:00)
[2019-09-16] MEDS ORDERED: ceFAZolin SOD 2 GM in IV 1 EA IV ONE (13:00)
[2019-09-16] MEDS ORDERED: BICITRA 30ML SOLN UDC PO ONE (13:00)
[2019-09-16] MEDS ORDERED: METOCLOPRAMIDE INJ 10MG/2ML VIAL (J2765) IV PRN ×2 (13:12→15:00)
[2019-09-16] MEDS ORDERED: NALBUPHINE HCL 10 MG/ML AMP (J2300) IV PRN (13:12)
[2019-09-16] MEDS ORDERED: diphenhydrAMINE INJ 50MG/ML VIAL (J1200) IV PRN (13:12)
[2019-09-16] MEDS ORDERED: NALOXONE INJ 0.4 MG/1 ML VIAL (J2310) IV PRN ×2 (13:12)
[2019-09-16] MEDS ORDERED: ONDANSETRON 4MG/2ML VIAL (J2405) IV PRN ×2 (13:12→15:00)
[2019-09-16] MEDS ORDERED: OXYTOCIN INJ 10 UNITS/ML VIAL (J2590) As Ordered ONE (13:16)
[2019-09-16] MEDS ORDERED: MORPHINE PRES-FREE INJ 10 MG/10 ML VIAL (J2274) As Ordered ONE (13:16)
[2019-09-16] MEDS ORDERED: ONDANSETRON 4MG/2ML VIAL (J2405) As Ordered ONE (13:20)
[2019-09-16] MEDS ORDERED: ePHEDrine SULFATE 25 MG/5 ML(5MG/ML) SYRINGE As Ordered ONE (13:20)
[2019-09-16 13:55] LABS: CORD GAS ABE A -4.1; CORD GAS HCO3 A 24.2 MEQ/L; CORD GAS O2 SAT A 29.1 %; CORD GAS PCO2 A 56.9 mmHg; CORD GAS PH A 7.246 UNITS; CORD GAS PO2 A 17.7 mmHg; CORD GAS SBC A 19.4 MEQ/L; CORD GAS TCO2 A 25.9 MEQ/L
[2019-09-16 13:56] LABS: CORD GAS HCO3 V 22.1 MEQ/L; CORD GAS O2 SAT V 63.2 %; CORD GAS PH V 7.319 UNITS; CORD GAS PO2 V 27.2 mmHg; CORD GAS SBC V 20.3 MEQ/L; CORD GAS TCO2 V 23.5 MEQ/L
[2019-09-16] MEDS: LR 1,000 ML IV SCH ×2 (14:21→22:21)
[2019-09-16] MEDS ORDERED: OXYTOCIN DRIP 30 UNITS in IV 1 EA IV SCH (14:21)
[2019-09-16] MEDS ORDERED: ONDANSETRON 4 MG TAB (S0181) PO PRN (14:30)
[2019-09-16] MEDS ORDERED: PERCOCET 5MG/325MG TAB PO PRN ×2 (14:30→15:00)
[2019-09-16] MEDS ORDERED: RHOGAM 300 MCG (1500 IU) INJ (J2790) IM SCH (14:30)
[2019-09-16] MEDS ORDERED: MEASLES,MUMPS,RUBELLA VACCINE INJ (MMR-II) (90707) SC SCH (14:30)
[2019-09-16] MEDS ORDERED: ACETAMINOPHEN 500 MG TAB PO PRN (14:30)
[2019-09-16] MEDS ORDERED: PROMETHAZINE 25 MG TAB PO PRN (14:30)
[2019-09-16] MEDS ORDERED: OXYTOCIN 30 UNITS IN 0.9% NaCl 500ML IV BAG (J2590) As Ordered ONE (14:46)
[2019-09-16] MEDS ORDERED: KETOROLAC 30 MG/ML VIAL (J1885) As Ordered ONE (14:46)
[2019-09-16] MEDS: KETOROLAC 30 MG/ML VIAL (J1885) IV SCH ×2 (14:51→21:07)
[2019-09-16] MEDS ORDERED: PERCOCET 5MG/325MG TAB As Ordered ONE (14:55)
[2019-09-16] MEDS ORDERED: LR 1,000 ML IV SCH (15:00)
[2019-09-16] MEDS ORDERED: fentaNYL 100 MCG/2 ML INJECTION (J3010) IV PRN (15:00)
[2019-09-16] MEDS: PERCOCET 5MG/325MG TAB PO PRN (17:54)
[2019-09-16] MEDS: DOCUSATE SODIUM 100 MG CAP PO SCH (21:09)
[2019-09-17 02:00] VITALS: BP 113/56
[2019-09-17] MEDS: KETOROLAC 30 MG/ML VIAL (J1885) IV SCH ×2 (02:26→09:30)
[2019-09-17 06:00] VITALS: BP 128/68
[2019-09-17] MEDS: PERCOCET 5MG/325MG TAB PO PRN ×4 (06:47→22:03)
[2019-09-17 07:11] LABS: HEMATOCRIT 32.8 % (36.0-47.0); HEMOGLOBIN 10.5 g/dl (12.0-15.5); MEAN CORPUSCULAR HEMOGLOBIN 30.3 pg (27.0-33.0); MEAN CORPUSCULAR VOLUME 94.5 fl (80.0-96.0); PLATELET COUNT, AUTOMATED 179 10^3/uL (150-450); RED BLOOD COUNT 3.47 10^6/uL (4.00-5.40); WHITE BLOOD COUNT 13.3 10^3/uL (4.0-10.0)
[2019-09-17] MEDS: DOCUSATE SODIUM 100 MG CAP PO SCH ×2 (09:30→21:20)
[2019-09-17] MEDS: PRENATAL VITAMINS CHEWABLE TABLET PO SCH (09:30)
[2019-09-17] MEDS: LABETALOL 200 MG TAB PO SCH ×2 (09:34→21:22)
[2019-09-17 10:00] VITALS: BP 128/71
[2019-09-17 14:00] VITALS: BP 128/66
[2019-09-17] MEDS: IBUPROFEN 800 MG TAB PO SCH (16:30)
[2019-09-17 18:30] VITALS: BP 144/80
[2019-09-17 21:25] VITALS: BP 154/84
[2019-09-18] MEDS: IBUPROFEN 800 MG TAB PO SCH ×2 (01:06→08:11)
[2019-09-18 01:36] VITALS: BP 135/71
[2019-09-18] MEDS: PERCOCET 5MG/325MG TAB PO PRN ×2 (02:59→09:44)
[2019-09-18 06:00] VITALS: BP 138/82
[2019-09-18 08:10] VITALS: BP 130/82
[2019-09-18] MEDS: PRENATAL VITAMINS CHEWABLE TABLET PO SCH (08:10)
[2019-09-18] MEDS: LABETALOL 200 MG TAB PO SCH (08:10)
[2019-09-18] MEDS: DOCUSATE SODIUM 100 MG CAP PO SCH (08:10)
[2019-09-18] MEDS ORDERED: PERCOCET PO (09:52)
[2019-09-18] MEDS ORDERED: IBUP80TA PO (09:52)
[2019-09-18] MEDS ORDERED: DOCU100C16 PO (09:52)
== END 2019-09-18 10:50 | disposition home or self-care (01) | DRG 540 ==
LOC: M LDO 13:53 → M LDI 16:00 → M OBS 09-16 15:39
PROVIDERS: ADMIT Advanced Practice Midwife; ATTEND Advanced Practice Midwife
PROC: 10D00Z1 Extraction of Products of Conception, Low, Open Approach (ICD-10-PCS; principal; 2019-09-16 13:02)
DX: O14.14 Severe pre-eclampsia complicating childbirth (principal); O36.5930 Maternal care for other known or suspected poor fetal growth, third trimester, not applicable or unspecified; Z37.0 Single live birth; Z3A.35 35 weeks gestation of pregnancy; O32.1XX0 Maternal care for breech presentation, not applicable or unspecified

== ENCOUNTER → 2021-08-02 | Outpatient (REF) | payer BC ==
[~2021-08-02] MED LIST changes: +DOCU100C16 PO; +IBUP80TA PO; -LABE100T36 PO; +LABE100T5 PO; +LABE200T32 PO; +PERCOCET PO
== END ==
LOC: M WUC 18:05
PROVIDERS: ATTEND Physician Assistant
DX: R30.0 Dysuria (principal)

== ENCOUNTER → 2021-10-17 | Outpatient (REF) | payer BC | LOC: M LAB REF 12:08 | PROVIDERS: ATTEND Internal Medicine | DX: R20.2 Paresthesia of skin (principal); R30.0 Dysuria ==

== ENCOUNTER → 2022-02-19 | Outpatient (REF) | payer BC ==
[~2022-02-19] MED LIST changes: +LABE200T3 PO; -LABE200T32 PO
== END ==
LOC: M LAB REF 12:14
PROVIDERS: ATTEND Physician Assistant
DX: R52 Pain, unspecified (principal); R53.83 Other fatigue; R50.9 Fever, unspecified

== ENCOUNTER → 2022-07-07 | Outpatient (REF) | payer BC ==
[~2022-07-07] MED LIST changes: -LABE100T5 PO; +LABE100T71 PO; -LABE200T3 PO; +LABE200T5 PO
== END ==
LOC: M LAB REF 21:21
PROVIDERS: ATTEND Physician Assistant Medical
DX: R50.9 Fever, unspecified (principal)

== ENCOUNTER 2025-06-18 11:24 | Emergency (ER) | payer BC ==
[~2025-06-18] VITALS: Ht 154.9 cm; Wt 65.6 kg
[~2025-06-18 11:24] MED LIST changes: +LABE100T40 PO; -LABE100T71 PO
[2025-06-18 12:38] LABS: BASO # 0.1 10^3/uL (0.0-0.2); BASO % 1.2 % (0.0-1.0); EOS # 0.1 10^3/uL (0.0-0.5); EOS % 0.7 % (0.0-3.0); LYMPH # 1.8 10^3/uL (1.5-5.0); LYMPH % 25.9 % (24.0-44.0); MONO # 0.6 10^3/uL (0.0-0.8); MONO % 9.2 % (2.0-8.0); NEUTROPHILS # 4.2 10^3/uL (1.5-8.5); NEUTROPHILS % 62.6 % (36.0-66.0); PLATELET COUNT, AUTOMATED 194 10^3/uL (150-450)
[2025-06-18 13:11] LABS: CALCIUM LEVEL 8.4 MG/DL (8.5-10.1); CARBON DIOXIDE LEVEL 28 MMOL/L (20-31); CHLORIDE LEVEL 98 MMOL/L (98-107); CREATININE FOR GFR 0.50 MG/DL (0.55-1.30); GLOMERULAR FILTRATION RATE > 90.0 (>60); POTASSIUM SERUM 3.9 MMOL/L (3.5-5.1); SODIUM LEVEL 135 MMOL/L (136-145)
[2025-06-18 14:15] LABS: HCG, SERUM QUALITATIVE NEGATIVE (NEGATIVE)
[2025-06-18 17:30] VITALS: BP 136/89; O2SAT 97
[2025-06-18] MEDS ORDERED: PROV10TA PO (18:12)
[2025-06-18 18:20] VITALS: TEMP 99.7
[2025-06-18 18:26] LABS: ALT/SGPT 56 U/L (7.0-40); AST/SGOT 98 U/L (<34)
== END 2025-06-18 18:28 | disposition home or self-care (01) ==
LOC: M ED 13:35
DX: N93.9 Abnormal uterine and vaginal bleeding, unspecified (principal); F41.0 Panic disorder [episodic paroxysmal anxiety]; Z79.82 Long term (current) use of aspirin; Z79.1 Long term (current) use of non-steroidal anti-inflammatories (NSAID); Z79.899 Other long term (current) drug therapy; Z88.8 Allergy status to other drugs, medicaments and biological substances

== ENCOUNTER → 2025-07-05 | Outpatient (CLI) | payer BC ==
[~2025-07-05] MED LIST changes: +PROV10TA PO
[2025-07-05 10:33] LABS: TESTOSTERONE 54.0 NG/DL (14-76)
[2025-07-05 10:34] LABS: LUTEINIZING HORMONE 2.8 mIU/ML; PROLACTIN 12.95 NG/ML
[2025-07-05 10:35] LABS: ESTRADIOL 44.0 PG/ML
[2025-07-05 10:36] LABS: ESTIMATED AVERAGE GLUCOSE 85.0 MG/DL (60-110)
[2025-07-06 21:32] LABS: SEX HORMONE BINDING GLOBULIN 76 nmol/L (17-124)
== END ==
LOC: M PLALAB 07:18
PROVIDERS: ATTEND Physician Assistant
DX: N93.9 Abnormal uterine and vaginal bleeding, unspecified (principal)

== ENCOUNTER → 2025-07-11 | Outpatient (REF) | payer BC | LOC: M PLALAB 11:25 | PROVIDERS: ATTEND Physician Assistant | DX: N93.9 Abnormal uterine and vaginal bleeding, unspecified (principal) ==